=== PATIENT | male | born 1960 | race Asian ===

== ENCOUNTER 2022-04-13 14:09 | Outpatient (CLI) | payer BC | END 2022-04-13 14:10 | disposition home or self-care (01) | LOC: EEG 14:09 | PROVIDERS: ATTEND Psychiatry & Neurology Neurology | DX: R56.9 Unspecified convulsions (principal) | CPT/HCPCS: 95816; 95957 ==

== ENCOUNTER 2023-01-20 09:00 | Inpatient (IN) | payer BC ==
[2023-01-20 09:24] LABS: Hematocrit 50.1 % (38.8-50.0); Hemoglobin 15.9 g/dL (13.5-17.5); Mean Corpuscular HGB CONC 31.7 g/dL (32.0-36.0); Mean Corpuscular Hemoglobin 25.4 pg (27.0-33.0); Mean Platelet Volume 11.2 fl (7.4-10.4); Platelet Count 275 10x3/uL (150-450); RBC Distribution Width 17.2 % (11.5-14.5); Red Blood Cell (RBC) Count 6.26 10x6/uL (4.32-5.72); White Blood Cell (WBC) Count 9.6 10x3/uL (3.5-10.5)
[2023-01-20 11:21] LABS: Anion Gap 18 mmol/L (10-20); BUN (Urea Nitrogen) 12 mg/dL (8.4-25.7); Calc. Creatinine Clearance 0 mL/min (70-130); Calcium 9.8 mg/dL (7.8-10.44); Carbon Dioxide 22 mmol/L (23-31); Chloride 102 mmol/L (98-107); Estimated GFR 97; Glucose 122 mg/dL (80-115); Potassium 4.7 mmol/L (3.5-5.1); Sodium 137 mmol/L (136-145)
[2023-01-21] MEDS ORDERED: Lidocaine 1% MPF 2 ML VIAL ONE (06:41)
[2023-01-21] MEDS ORDERED: Albumin 5% 500 ML ONE (06:59)
[2023-01-21] MEDS ORDERED: Fentanyl 250 MCG/5 ML VIAL ONE ×2 (07:14→08:11)
[2023-01-21] MEDS ORDERED: Vecuronium 10 MG VIAL ONE ×2 (07:15→07:36)
[2023-01-21] MEDS ORDERED: PROPOFOL 20 ML ONE (07:15)
[2023-01-21] MEDS ORDERED: Midazolam HCl 2 mg/2 ml Vial ONE ×2 (07:17→10:18)
[2023-01-21] MEDS ORDERED: CEFAZOLIN 2 GM VIAL ONE (07:23)
[2023-01-21] MEDS ORDERED: Sodium Chloride 0.9% 100 ML ONE (07:24)
[2023-01-21] MEDS ORDERED: Heparin 10,000 UNITS/1 ML VIAL 30,000 UNITS in Sodium Chloride 0.9% 1,000 ML FS SCH (07:30)
[2023-01-21] MEDS ORDERED: Protamine Sulfate 250 MG/25 ML VIAL ONE (07:36)
[2023-01-21] MEDS ORDERED: PHENYLEPHRINE-NS 100 MCG/ML 10 ML SYRINGE ONE ×4 (07:36→10:56)
[2023-01-21] MEDS ORDERED: Papaverine 60 MG/2 ML VIAL ONE (07:36)
[2023-01-21] MEDS ORDERED: Glycopyrrolate 0.2 MG/ML 5 ML SYRINGE ONE ×2 (07:36→10:08)
[2023-01-21] MEDS ORDERED: Calcium Chloride 1 GM/10 ML Abboject SYRINGE ONE ×2 (07:36→10:14)
[2023-01-21] MEDS ORDERED: Aminocaproic Acid 5 GM/20 ML VIAL ONE (07:36)
[2023-01-21] MEDS ORDERED: Albumin 25% 25 GM/100 ML BOT ONE (07:36)
[2023-01-21] MEDS ORDERED: Lidocaine 2% PF 100 mg/5 ml Syringe ONE (07:36)
[2023-01-21] MEDS ORDERED: Vancomycin 1 GM VIAL ONE (07:36)
[2023-01-21] MEDS ORDERED: Heparin 5,000 UNITS/ML VIAL ONE (07:36)
[2023-01-21] MEDS ORDERED: Ondansetron PF 4 MG/2 ML Vial ONE ×2 (07:36→10:51)
[2023-01-21] MEDS ORDERED: Rocuronium Bromide 10 MG/ML (10ML VIAL) ONE ×2 (07:36→08:49)
[2023-01-21] MEDS ORDERED: PROPOFOL 200 MG/20 ML VIAL ONE (07:36)
[2023-01-21] MEDS ORDERED: Thrombin 5000 UNITS/5 ML VIAL ONE (07:36)
[2023-01-21] MEDS ORDERED: Sodium Bicarb 50 MEQ/50 ML VIAL ONE (07:36)
[2023-01-21] MEDS ORDERED: Potassium Chloride 60 MEQ/30 ML VIAL ONE (07:36)
[2023-01-21] MEDS ORDERED: Cardioplegic Soln 1,000 ML BAG ONE (07:36)
[2023-01-21] MEDS ORDERED: Magnesium 5 GM/10 ML VIAL ONE (07:36)
[2023-01-21] MEDS ORDERED: Mannitol 12.5 GM/50 ML ONE (07:36)
[2023-01-21] MEDS ORDERED: Heparin 30,000 units/30 ml VIAL ONE (07:36)
[2023-01-21] MEDS ORDERED: Albumin 5% 250 ML ONE (10:25)
[2023-01-21 11:21] LABS: Actual Bicarbonate (HCO3a) 19.4 mEq/L (22-28); Base Excess (BEa) -5.6 mEq/L (-2.0 to +3.0); CO2 Tension 36.6 mmHg (35.0-45.0); Calcium, Ionized (arterial) 1.32 mmol/L (1.12-1.30); Carboxyhemoglobin (COHb) 0.3 gm% (0.0-3.0); Hematocrit-ABG 35 % (42.0-52.0); Hemoglobin (Hb) 11.9 g/dL (14.0-18.0); O2 Tension (PaO2), arterial 112.5 mmHg (> 80.0); Potassium - ABG Lab 4.24 mmol/L (3.70-5.30); pH, Arterial 7.343 (7.35-7.45)
[2023-01-21 11:23] LABS: Puncture Site Arterial Line
[2023-01-21] MEDS ORDERED: NOREPINEPHRINE 8 MG/250 ML-D5W 250 ML IVPB PRN (11:28)
[2023-01-21] MEDS ORDERED: Nitroglycerin 50 MG/250 ML BOT 250 ML IVPB PRN (11:28)
[2023-01-21] MEDS ORDERED: Post-Op Insulin Drip Protocol IVPB ONE (11:28)
[2023-01-21] MEDS ORDERED: Mag-Al 1200 mg/1200 mg/30 ML UDCUP PO PRN (11:28)
[2023-01-21] MEDS ORDERED: Ondansetron PF 4 MG/2 ML Vial IVP PRN (11:28)
[2023-01-21] MEDS ORDERED: Bisacodyl 5 MG TAB PO PRN (11:28)
[2023-01-21] MEDS ORDERED: DOPamine 400 MG/D5W 250 ML 250 ML IVPB PRN (11:28)
[2023-01-21] MEDS ORDERED: Hetastarch 6% 500 ML 500 ML IVPB PRN (11:28)
[2023-01-21] MEDS ORDERED: Bisacodyl 10 MG SUPP PR PRN (11:28)
[2023-01-21] MEDS ORDERED: Promethazine HCl 25 MG/ML VIAL IM PRN (11:28)
[2023-01-21] MEDS ORDERED: Ipratropium/Albuterol 3 ML NEB NEB PRN (11:28)
[2023-01-21] MEDS ORDERED: Acetaminophen 325 MG TAB PO PRN (11:28)
[2023-01-21] MEDS ORDERED: HYDROcodone/Acetaminophen 5/325 mg Tablet PO PRN ×2 (11:28)
[2023-01-21] MEDS ORDERED: fentaNYL 50 mcg/mL 1 mL Vial SLOW IVP PRN ×2 (11:28)
[2023-01-21] MEDS ORDERED: Morphine 2 MG/ML VIAL SLOW IVP PRN (11:28)
[2023-01-21] MEDS ORDERED: niCARdipine 25 MG in Sodium Chloride 0.9% 250 ML 250 ML IVPB PRN (11:28)
[2023-01-21] MEDS ORDERED: Potassium Chloride 20 MEQ/100 ML PREMIX BAG IVPB PRN (11:28)
[2023-01-21] MEDS: Lactated Ringer's 1,000 ML IV SCH (11:42)
[2023-01-21] MEDS ORDERED: Dextrose 5% in Water 1,000 ML IV PRN (11:45)
[2023-01-21] MEDS ORDERED: Glucagon 1 MG/ML KIT SC PRN (11:45)
[2023-01-21] MEDS ORDERED: HUMULIN R 100 UNITS in Sodium Chloride 0.9% 100 ML IVPB SCH (11:45)
[2023-01-21] MEDS ORDERED: Dextrose 50% Abboject 50 ML SYRINGE SLOW IVP PRN (11:45)
[2023-01-21] MEDS: Ketorolac Tromethamine 30 MG/ML VIAL IVP SCH ×2 (11:51→17:08)
[2023-01-21 12:04] LABS: #Eosinphils 0.2 thou/uL (0.0-0.7); #Monocytes 1.4 thou/uL (0.11-0.59); #Neutrophils 10.4 thou/uL (1.40-6.50); %Basophils 0.3 % (0.0-1.0); %Eosinophils 1.1 % (0.0-10.0); %Lymphocytes 13.9 % (21.0-51.0); %Monocytes 9.7 % (0.0-10.0); %Neutrophils 74.4 % (42.0-75.0); Hematocrit 35.5 % (42.0-52.0); Hemoglobin 11.4 g/dL (14.0-18.0); Mean Corpuscular HGB CONC 32.1 g/dL (32.0-36.0); Mean Corpuscular Hemoglobin 26.1 pg (27.0-31.0); Mean Corpuscular Volume 81.4 fl (78.0-98.0); Mean Platelet Volume 11.1 fL (7.4-10.4); Platelet Count 139 10x3/uL (130-400); RBC Distribution Width 15.5 % (11.5-14.5); Red Blood Cell (RBC) Count 4.36 mill/uL (4.70-6.10)
[2023-01-21 12:17] LABS: INR-International Normal Ratio 1.5; PTT 32.9 sec (22.9-36.1)
[2023-01-21 12:26] LABS: Anion Gap 13 mmol/L (10-20); BUN (Urea Nitrogen) 10 mg/dL (8.4-25.7); Calc. Creatinine Clearance 55 mL/min (70-130); Calcium 9.5 mg/dL (7.8-10.44); Carbon Dioxide 18 mmol/L (23-31); Chloride 114 mmol/L (98-107); Estimated GFR 102; Glucose 93 mg/dL (80-115); Potassium 4.4 mmol/L (3.5-5.1); Sodium 141 mmol/L (136-145)
[2023-01-21 14:07] LABS: Actual Bicarbonate (HCO3a) 18.6 mEq/L (22-28); Base Excess (BEa) -6.9 mEq/L (-2.0 to +3.0); CO2 Tension 37.5 mmHg (35.0-45.0); Calcium, Ionized (arterial) 1.22 mmol/L (1.12-1.30); Carboxyhemoglobin (COHb) 0.6 gm% (0.0-3.0); Hematocrit-ABG 36 % (42.0-52.0); Hemoglobin (Hb) 12.4 g/dL (14.0-18.0); O2 Tension (PaO2), arterial 92.7 mmHg (> 80.0); Potassium - ABG Lab 4.25 mmol/L (3.70-5.30); pH, Arterial 7.314 (7.35-7.45)
[2023-01-21 14:21] LABS: Puncture Site Arterial Line
[2023-01-21] MEDS: CEFAZOLIN 2 GM in Sodium Chloride 0.9% 100 ML IVPB SCH (14:41)
[2023-01-21] MEDS: Atorvastatin Calcium 40 MG TAB PO SCH (20:11)
[2023-01-21] MEDS: Famotidine/PF 20 mg/2ml Vial SLOW IVP SCH (20:12)
[2023-01-22] MEDS: Ketorolac Tromethamine 30 MG/ML VIAL IVP SCH ×5 (00:01→23:52)
[2023-01-22] MEDS: CEFAZOLIN 2 GM in Sodium Chloride 0.9% 100 ML IVPB SCH ×2 (00:03→06:01)
[2023-01-22] MEDS: Lactated Ringer's 1,000 ML IV SCH ×2 (00:03→13:26)
[2023-01-22 05:00] LABS: #Monocytes 1.2 thou/uL (0.11-0.59); #Neutrophils 5.6 thou/uL (1.40-6.50); %Basophils 0.2 % (0.0-1.0); %Eosinophils 0.4 % (0.0-10.0); %Lymphocytes 19.8 % (21.0-51.0); %Monocytes 13.8 % (0.0-10.0); %Neutrophils 65.6 % (42.0-75.0); Hematocrit 30.5 % (42.0-52.0); Hemoglobin 9.8 g/dL (14.0-18.0); Mean Corpuscular HGB CONC 32.1 g/dL (32.0-36.0); Mean Corpuscular Hemoglobin 25.9 pg (27.0-31.0); Mean Corpuscular Volume 80.7 fl (78.0-98.0); Mean Platelet Volume 11.8 fL (7.4-10.4); Platelet Count 132 10x3/uL (130-400); RBC Distribution Width 15.8 % (11.5-14.5); Red Blood Cell (RBC) Count 3.78 mill/uL (4.70-6.10); White Blood Cell (WBC) Count 8.5 10x3/uL (4.8-10.8)
[2023-01-22 05:08] VITALS: BMI 30.7
[2023-01-22 05:24] LABS: Anion Gap 10 mmol/L (10-20); BUN (Urea Nitrogen) 12 mg/dL (8.4-25.7); Calc. Creatinine Clearance 120 mL/min (70-130); Carbon Dioxide 21 mmol/L (23-31); Chloride 110 mmol/L (98-107); Estimated GFR 101; Glucose 96 mg/dL (80-115); Potassium 4.2 mmol/L (3.5-5.1); Sodium 137 mmol/L (136-145)
[2023-01-22] MEDS: Polyethylene Glycol 3350 17 GM Packet PO SCH (08:35)
[2023-01-22] MEDS: Aspirin Chewable 81 MG TAB PO SCH (08:35)
[2023-01-22] MEDS: Clopidogrel Bisulfate 75 MG TAB PO SCH (08:35)
[2023-01-22] MEDS: Magnesium 2 GM/50 ML(in water) 2 GM in Premix 1 BAG IVPB SCH (08:35)
[2023-01-22] MEDS: Famotidine/PF 20 mg/2ml Vial SLOW IVP SCH (08:35)
[2023-01-22] MEDS ORDERED: Insulin Glargine 30 UNITS/0.3 ML VIAL SC PRN (11:41)
[2023-01-22] MEDS: Famotidine 20 MG TAB PO SCH (20:21)
[2023-01-22] MEDS: Atorvastatin Calcium 40 MG TAB PO SCH (20:21)
[2023-01-22] MEDS: Insulin Regular 300 UNITS/3 ML VIAL SC PRN (20:24)
[2023-01-22] MEDS: hydrALAZINE 20 MG/ML VIAL SLOW IVP PRN (22:12)
[2023-01-23] MEDS: Lactated Ringer's 1,000 ML IV SCH ×2 (00:33→11:21)
[2023-01-23] MEDS ORDERED: niCARdipine 50 MG, Admixture Fee 1 EACH in Sodium Chloride 0.9% 250 ML 230 ML IV SCH (02:15)
[2023-01-23 05:00] LABS: #Basophils 0.1 thou/uL (0.0-0.2); #Monocytes 2.9 thou/uL (0.11-0.59); #Neutrophils 13.5 thou/uL (1.40-6.50); %Basophils 0.3 % (0.0-1.0); %Eosinophils 0.2 % (0.0-10.0); %Lymphocytes 10.4 % (21.0-51.0); %Monocytes 15.5 % (0.0-10.0); Hematocrit 33.3 % (42.0-52.0); Hemoglobin 10.7 g/dL (14.0-18.0); Mean Corpuscular HGB CONC 32.1 g/dL (32.0-36.0); Mean Platelet Volume 11.9 fL (7.4-10.4); Platelet Count 183 10x3/uL (130-400); RBC Distribution Width 15.9 % (11.5-14.5); Red Blood Cell (RBC) Count 4.11 mill/uL (4.70-6.10); White Blood Cell (WBC) Count 18.5 10x3/uL (4.8-10.8)
[2023-01-23] MEDS: Ketorolac Tromethamine 30 MG/ML VIAL IVP SCH ×3 (05:28→17:12)
[2023-01-23 05:31] LABS: Anion Gap 18 mmol/L (10-20); BUN (Urea Nitrogen) 13 mg/dL (8.4-25.7); Calc. Creatinine Clearance 118 mL/min (70-130); Calcium 8.3 mg/dL (7.8-10.44); Carbon Dioxide 15 mmol/L (23-31); Chloride 107 mmol/L (98-107); Estimated GFR 101; Glucose 142 mg/dL (80-115); Potassium 3.7 mmol/L (3.5-5.1); Sodium 136 mmol/L (136-145)
[2023-01-23] MEDS: Insulin Regular 300 UNITS/3 ML VIAL SC PRN ×2 (08:04→13:30)
[2023-01-23] MEDS: Magnesium 2 GM/50 ML(in water) 2 GM in Premix 1 BAG IVPB SCH (09:30)
[2023-01-23] MEDS: Clopidogrel Bisulfate 75 MG TAB PO SCH (09:31)
[2023-01-23] MEDS: Famotidine 20 MG TAB PO SCH ×2 (09:31→20:16)
[2023-01-23] MEDS: Aspirin Chewable 81 MG TAB PO SCH (09:31)
[2023-01-23] MEDS: Polyethylene Glycol 3350 17 GM Packet PO SCH (09:45)
[2023-01-23] MEDS ORDERED: Furosemide 20 MG/2 ML VIAL SLOW IVP SCH (10:15)
[2023-01-23] MEDS ORDERED: Dextrose 50% Abboject 50 ML SYRINGE SLOW IVP PRN (15:09)
[2023-01-23] MEDS ORDERED: Glucagon 1 MG/ML KIT IM PRN (15:09)
[2023-01-23] MEDS ORDERED: Dextrose 5% in Water 1,000 ML IV PRN (15:09)
[2023-01-23] MEDS ORDERED: Lisinopril 20 MG TAB PO SCH (15:15)
[2023-01-23] MEDS: hydrALAZINE 20 MG/ML VIAL SLOW IVP PRN (16:07)
[2023-01-23] MEDS: HumaLOG 300 UNITS/3 ML VIAL SC PRN (16:46)
[2023-01-23] MEDS: Insulin Glargine 30 UNITS/0.3 ML VIAL SC SCH (20:16)
[2023-01-23] MEDS: Atorvastatin Calcium 40 MG TAB PO SCH (20:16)
[2023-01-23] MEDS: Empagliflozin 25 MG TAB PO SCH (22:08)
[2023-01-24] MEDS: Ketorolac Tromethamine 30 MG/ML VIAL IVP SCH ×3 (01:13→11:55)
[2023-01-24 04:17] LABS: #Eosinphils 0.1 thou/uL (0.0-0.7); #Monocytes 1.5 thou/uL (0.11-0.59); #Neutrophils 9.2 thou/uL (1.40-6.50); %Basophils 0.3 % (0.0-1.0); %Eosinophils 0.6 % (0.0-10.0); %Lymphocytes 11.9 % (21.0-51.0); %Monocytes 11.9 % (0.0-10.0); %Neutrophils 74.2 % (42.0-75.0); Hematocrit 30.5 % (42.0-52.0); Hemoglobin 9.7 g/dL (14.0-18.0); Mean Corpuscular HGB CONC 31.8 g/dL (32.0-36.0); Mean Corpuscular Hemoglobin 25.8 pg (27.0-31.0); Mean Corpuscular Volume 81.1 fl (78.0-98.0); Mean Platelet Volume 11.3 fL (7.4-10.4); Platelet Count 168 10x3/uL (130-400); RBC Distribution Width 16.1 % (11.5-14.5); Red Blood Cell (RBC) Count 3.76 mill/uL (4.70-6.10); White Blood Cell (WBC) Count 12.3 10x3/uL (4.8-10.8)
[2023-01-24 04:42] LABS: Hemoglobin A1c 9.6 % (4.0-6.0)
[2023-01-24 04:43] LABS: Anion Gap 16 mmol/L (10-20); BUN (Urea Nitrogen) 12 mg/dL (8.4-25.7); Calc. Creatinine Clearance 119 mL/min (70-130); Calcium 8.1 mg/dL (7.8-10.44); Carbon Dioxide 18 mmol/L (23-31); Cardiac Risk 2.3 (Less than 4.5); Chloride 109 mmol/L (98-107); Cholesterol 60 mg/dl (< 200 Desired); Estimated GFR 101; Glucose 130 mg/dL (80-115); HDL Cholesterol 26 mg/dL (>60 Neg Risk); LDL Cholesterol, Calculated 23 mg/dL; Potassium 3.4 mmol/L (3.5-5.1); Sodium 140 mmol/L (136-145); Triglycerides 54 mg/dL (Less than 150)
[2023-01-24] MEDS: Levothyroxine Sodium 125 MCG TAB PO SCH (05:24)
[2023-01-24] MEDS: Lactated Ringer's 1,000 ML IV SCH (05:44)
[2023-01-24] MEDS: Aspirin Chewable 81 MG TAB PO SCH (08:12)
[2023-01-24] MEDS: Famotidine 20 MG TAB PO SCH ×2 (08:12→20:11)
[2023-01-24] MEDS: Clopidogrel Bisulfate 75 MG TAB PO SCH (08:12)
[2023-01-24] MEDS: Polyethylene Glycol 3350 17 GM Packet PO SCH (08:15)
[2023-01-24] MEDS ORDERED: FLU VACC QS2023-24(6MOS UP)/PF 60 MCG/0.5 ML SYRINGE IM ONE (09:00)
[2023-01-24] MEDS: HumaLOG 300 UNITS/3 ML VIAL SC PRN ×3 (11:53→22:16)
[2023-01-24] MEDS: Lisinopril 20 MG TAB PO SCH (20:11)
[2023-01-24] MEDS: Atorvastatin Calcium 40 MG TAB PO SCH (20:12)
[2023-01-24] MEDS: Insulin Glargine 30 UNITS/0.3 ML VIAL SC SCH (20:13)
[2023-01-24] MEDS: Empagliflozin 25 MG TAB PO SCH (21:09)
[2023-01-25 04:00] LABS: #Eosinphils 0.3 thou/uL (0.0-0.7); #Monocytes 1.2 thou/uL (0.11-0.59); #Neutrophils 6.7 thou/uL (1.40-6.50); %Basophils 0.4 % (0.0-1.0); %Eosinophils 3.5 % (0.0-10.0); %Lymphocytes 14.7 % (21.0-51.0); %Monocytes 12.6 % (0.0-10.0); %Neutrophils 68.5 % (42.0-75.0); Hematocrit 29.8 % (42.0-52.0); Hemoglobin 9.7 g/dL (14.0-18.0); Mean Corpuscular HGB CONC 32.6 g/dL (32.0-36.0); Mean Corpuscular Hemoglobin 25.4 pg (27.0-31.0); Mean Platelet Volume 10.7 fL (7.4-10.4); Platelet Count 202 10x3/uL (130-400); RBC Distribution Width 15.9 % (11.5-14.5); Red Blood Cell (RBC) Count 3.82 mill/uL (4.70-6.10); White Blood Cell (WBC) Count 9.8 10x3/uL (4.8-10.8)
[2023-01-25 04:27] LABS: Anion Gap 12 mmol/L (10-20); BUN (Urea Nitrogen) 10 mg/dL (8.4-25.7); Calc. Creatinine Clearance 126 mL/min (70-130); Carbon Dioxide 21 mmol/L (23-31); Chloride 110 mmol/L (98-107); Estimated GFR 104; Glucose 121 mg/dL (80-115); Potassium 3.2 mmol/L (3.5-5.1); Sodium 140 mmol/L (136-145)
[2023-01-25] MEDS: Levothyroxine Sodium 125 MCG TAB PO SCH (06:10)
[2023-01-25] MEDS: Potassium Chloride 10 MEQ TAB PO SCH (08:01)
[2023-01-25] MEDS: Furosemide 40 MG TAB PO SCH (08:01)
[2023-01-25] MEDS ORDERED: Artificial Tear Sol 15 ML BOT EA EYE PRN (08:03)
[2023-01-25] MEDS ORDERED: Mineral Oil ENEMA PR PRN (08:03)
[2023-01-25] MEDS ORDERED: Nitroglycerin 0.4 MG TAB (25 Tab Bottle) SL PRN (08:03)
[2023-01-25] MEDS: Aspirin 325 mg Enteric Coated Tablet PO SCH (09:07)
[2023-01-25] MEDS: Famotidine 20 MG TAB PO SCH ×2 (09:07→20:23)
[2023-01-25] MEDS: Clopidogrel Bisulfate 75 MG TAB PO SCH (09:08)
[2023-01-25] MEDS: Insulin Glargine 30 UNITS/0.3 ML VIAL SC SCH ×2 (09:10→20:24)
[2023-01-25] MEDS: Aspirin Chewable 81 MG TAB PO SCH (09:10)
[2023-01-25] MEDS: Polyethylene Glycol 3350 17 GM Packet PO SCH (09:11)
[2023-01-25] MEDS: Insulin Regular 300 UNITS/3 ML VIAL SC PRN (16:31)
[2023-01-25] MEDS: Lisinopril 20 MG TAB PO SCH (20:23)
[2023-01-25] MEDS: Atorvastatin Calcium 20 MG TAB PO SCH (20:23)
[2023-01-25] MEDS: Empagliflozin 25 MG TAB PO SCH (20:24)
[2023-01-26] MEDS: Levothyroxine Sodium 125 MCG TAB PO SCH (05:22)
[2023-01-26] MEDS: Potassium Chloride 10 MEQ TAB PO SCH (07:50)
[2023-01-26] MEDS: Furosemide 40 MG TAB PO SCH (07:51)
[2023-01-26] MEDS: Guaifenesin DM 100-10/5 ML UDCUP PO PRN ×3 (08:08→22:13)
[2023-01-26] MEDS: Clopidogrel Bisulfate 75 MG TAB PO SCH (08:12)
[2023-01-26] MEDS: Polyethylene Glycol 3350 17 GM Packet PO SCH (08:12)
[2023-01-26] MEDS: Aspirin 325 mg Enteric Coated Tablet PO SCH (08:12)
[2023-01-26] MEDS: Insulin Glargine 30 UNITS/0.3 ML VIAL SC SCH ×2 (08:12→20:46)
[2023-01-26] MEDS: Aspirin Chewable 81 MG TAB PO SCH (08:23)
[2023-01-26] MEDS: Famotidine 20 MG TAB PO SCH ×2 (10:47→20:46)
[2023-01-26] MEDS: Insulin Regular 300 UNITS/3 ML VIAL SC PRN ×3 (11:12→20:46)
[2023-01-26] MEDS: Empagliflozin 25 MG TAB PO SCH (20:46)
[2023-01-26] MEDS: Atorvastatin Calcium 20 MG TAB PO SCH (20:46)
[2023-01-26] MEDS: Lisinopril 20 MG TAB PO SCH (20:46)
[2023-01-26 20:47] VITALS: BP 166/69
[2023-01-27] MEDS: Levothyroxine Sodium 125 MCG TAB PO SCH (05:35)
[2023-01-27 07:59] VITALS: TEMP 98.1
[2023-01-27] MEDS: Aspirin Chewable 81 MG TAB PO SCH (08:08)
[2023-01-27] MEDS: Potassium Chloride 10 MEQ TAB PO SCH (08:18)
[2023-01-27] MEDS: Clopidogrel Bisulfate 75 MG TAB PO SCH (08:19)
[2023-01-27] MEDS: Furosemide 40 MG TAB PO SCH (08:19)
[2023-01-27] MEDS: Famotidine 20 MG TAB PO SCH (08:19)
[2023-01-27] MEDS: Aspirin 325 mg Enteric Coated Tablet PO SCH (08:19)
[2023-01-27] MEDS: Insulin Glargine 30 UNITS/0.3 ML VIAL SC SCH (08:20)
[2023-01-27] MEDS: Polyethylene Glycol 3350 17 GM Packet PO SCH (08:22)
== END 2023-01-27 10:00 | disposition home or self-care (01) | DRG 236 ==
LOC: SURG A 01-21 06:11 → CCU 01-21 10:50
PROVIDERS: ADMIT Thoracic Surgery (Cardiothoracic Vascular Surgery); ATTEND Internal Medicine
PROC: 02100Z9 Bypass Coronary Artery, One Artery from Left Internal Mammary, Open Approach (ICD-10-PCS; principal; 2023-01-21)
PROC: 021109W Bypass Coronary Artery, Two Arteries from Aorta with Autologous Venous Tissue, Open Approach (ICD-10-PCS; 2023-01-21)
PROC: 06BQ4ZZ Excision of Left Saphenous Vein, Percutaneous Endoscopic Approach (ICD-10-PCS; 2023-01-21)
PROC: 02L70CK Occlusion of Left Atrial Appendage with Extraluminal Device, Open Approach (ICD-10-PCS; 2023-01-21)
PROC: 5A1221Z Performance of Cardiac Output, Continuous (ICD-10-PCS; 2023-01-21)
PROC: 4A133R1 Monitoring of Arterial Saturation, Peripheral, Percutaneous Approach (ICD-10-PCS; 2023-01-21)
PROC: 30233J1 Transfusion of Nonautologous Serum Albumin into Peripheral Vein, Percutaneous Approach (ICD-10-PCS; 2023-01-21)
DX: I25.10 Atherosclerotic heart disease of native coronary artery without angina pectoris (principal); D62 Acute posthemorrhagic anemia; I10 Essential (primary) hypertension; E78.00 Pure hypercholesterolemia, unspecified; E11.40 Type 2 diabetes mellitus with diabetic neuropathy, unspecified; E03.9 Hypothyroidism, unspecified; G47.33 Obstructive sleep apnea (adult) (pediatric); Z90.89 Acquired absence of other organs; Z98.890 Other specified postprocedural states; Z83.3 Family history of diabetes mellitus; Z82.49 Family history of ischemic heart disease and other diseases of the circulatory system; Z79.899 Other long term (current) drug therapy; Z79.890 Hormone replacement therapy; Z79.4 Long term (current) use of insulin
CPT/HCPCS: 36416; 71045; 80048; 80061; 82805; 83036; 85025; 85027; 85610; 85730; 86850; 86900; 86901; 93005; 93010; 93798; 94002; 97139; A4311; C1751; J0360; J1642; J1644; J1815; J1885; J1940; J2001; J2150; J2250; J2405; J2440; J2704; J2720; J3010; J3370; J3475; J3480; J3490; J7050; J7120; P9045; P9047; S0017; S0028